=== PATIENT | male | born 1965 | race Asian ===

== ENCOUNTER 2023-07-21 19:55 | Inpatient (IN) | payer OTHER ==
[~2023-07-21] VITALS: Ht 160 cm; Wt 67.1 kg
[2023-07-21 20:36] LABS: BASO # 0.1 10^3/uL (0.0-0.2); BASO % 0.4 % (0.0-1.0); EOS # 0.1 10^3/uL (0.0-0.5); EOS % 0.3 % (0.0-3.0); HEMATOCRIT 42.2 % (42.0-52.0); HEMOGLOBIN 13.5 g/dl (13.5-17.5); LYMPH # 1.6 10^3/uL (1.5-5.0); MEAN CORPUSCULAR HEMOGLOBIN 27.6 pg (27.0-33.0); MEAN CORPUSCULAR VOLUME 86.3 fl (80.0-96.0); MONO # 1.1 10^3/uL (0.0-0.8); MONO % 6.3 % (2.0-8.0); NEUTROPHILS % 83.6 % (36.0-66.0); PLATELET COUNT, AUTOMATED 325 10^3/uL (150-450); RED BLOOD COUNT 4.89 10^6/uL (4.30-6.10)
[2023-07-21] MEDS: ONDANSETRON 4MG 2ML VIAL IV ONE (20:39)
[2023-07-21] MEDS: MORPHINE 4 MG/ML 1ML VIAL IV ONE (20:39)
[2023-07-21 21:26] LABS: LIPASE 27 U/L (12-53)
[2023-07-21 21:28] LABS: ALBUMIN 3.7 G/DL (3.2-5.2); ALKALINE PHOSPHATASE 79 U/L (46-116); ALT/SGPT 36 U/L (7.0-40); AST/SGOT 29 U/L (<34); BILIRUBIN,DIRECT 0.2 MG/DL (<0.4); BILIRUBIN,TOTAL 0.8 MG/DL (0.3-1.2); BLOOD UREA NITROGEN 14 MG/DL (9-23); CALCIUM LEVEL 9.5 MG/DL (8.5-10.1); CARBON DIOXIDE LEVEL 25 MMOL/L (20-31); CHLORIDE LEVEL 104 MMOL/L (98-107); CREATININE FOR GFR 0.98 MG/DL (0.70-1.30); GLOMERULAR FILTRATION RATE > 60.0 (>56); GLUCOSE, FASTING 105 MG/DL (60-100); POTASSIUM SERUM 4.3 MMOL/L (3.5-5.1); SODIUM LEVEL 139 MMOL/L (136-145); TOTAL PROTEIN 7.6 G/DL (5.7-8.2)
[2023-07-21] MEDS ORDERED: ISOVUE-370 76% 100ML VIAL As Ordered ONE (21:31)
[2023-07-21] MEDS: cefTRIAXone SOD 1 GM in D5W MINI-BAG PLUS 50 ML IV ONE (21:58)
[2023-07-21] MEDS: KETOROLAC 30 MG/ML 1ML VIAL IV ONE (21:59)
[2023-07-21] MEDS: METOCLOPRAMIDE INJ 10MG/2ML VIAL IV ONE (21:59)
[2023-07-21] MEDS: NS 1,000 ML IV ONE ×2 (21:59→23:40)
[2023-07-22] MEDS ORDERED: BIOT2500 PO (01:23)
[2023-07-22] MEDS ORDERED: ESSETAB4 PO (01:23)
[2023-07-22] MEDS ORDERED: VITA500C24 PO (01:23)
[2023-07-22] MEDS ORDERED: COLL1CAP PO (01:26)
[2023-07-22] MEDS ORDERED: HOME MED LIST COMPLETE! XX SCH (01:30)
[2023-07-22] MEDS ORDERED: HYDROMORPHONE HCL 0.5 MG/ 0.5 ML SYRINGE IV PRN (02:40)
[2023-07-22 04:14] VITALS: BP 102/55; TEMP 97.9; O2SAT 93
[2023-07-22] MEDS: NS 1,000 ML IV SCH (04:30)
[2023-07-22 06:12] VITALS: BP 108/58; TEMP 97.9; O2SAT 93
[2023-07-22 08:15] LABS: HEMATOCRIT 34.3 % (42.0-52.0); HEMOGLOBIN 10.7 g/dl (13.5-17.5); MEAN CORPUSCULAR HGB CONC 31.2 g/dl (32.0-36.5); MEAN CORPUSCULAR VOLUME 86.4 fl (80.0-96.0); PLATELET COUNT, AUTOMATED 263 10^3/uL (150-450); RED BLOOD COUNT 3.97 10^6/uL (4.30-6.10); WHITE BLOOD COUNT 8.9 10^3/uL (4.0-10.0)
[2023-07-22 08:32] LABS: BLOOD UREA NITROGEN 15 MG/DL (9-23); CALCIUM LEVEL 8.1 MG/DL (8.5-10.1); CARBON DIOXIDE LEVEL 26 MMOL/L (20-31); CHLORIDE LEVEL 109 MMOL/L (98-107); CREATININE FOR GFR 0.88 MG/DL (0.70-1.30); GLOMERULAR FILTRATION RATE > 60.0 (>56); GLUCOSE, FASTING 90 MG/DL (60-100); POTASSIUM SERUM 4.1 MMOL/L (3.5-5.1); SODIUM LEVEL 142 MMOL/L (136-145)
[2023-07-22] MEDS: KETOROLAC 30 MG/ML 1ML VIAL IV PRN (10:33)
[2023-07-22] MEDS ORDERED: IBUP-1022 PO (11:26)
[2023-07-22] MEDS ORDERED: PERC5TAB12 PO (11:26)
[2023-07-22] MEDS ORDERED: FLOM0.4C39 PO (11:26)
[2023-07-22 11:44] LABS: URIC ACID 5.5 MG/DL (3.7-9.2)
[2023-07-22] MEDS: INFLUENZA QUADRIVALENT PF VACCINE 0.5ML SYRINGE IM.IMMUN ONE (13:10)
[2023-07-22] MEDS ORDERED: cefTRIAXone SOD 1 GM in D5W MINI-BAG PLUS 50 ML IV SCH (22:00)
== END 2023-07-22 14:20 | disposition home or self-care (01) | DRG 465 ==
LOC: M ED 19:55 → M ED INP 07-22 02:39 → ENRESERV 07-22 03:18 → M MSPAV 07-22 04:13
PROVIDERS: ADMIT Internal Medicine; ATTEND Internal Medicine Nephrology
DX: N13.2 Hydronephrosis with renal and ureteral calculous obstruction (principal); I95.9 Hypotension, unspecified; Z79.899 Other long term (current) drug therapy

== ENCOUNTER → 2023-08-03 | Outpatient (CLI) | payer OTHER ==
[~2023-08-03] MED LIST: BIOT2500 PO; COLL1CAP PO; ESSETAB4 PO; FLOM0.4C39 PO; IBUP-1022 PO; PERC5TAB12 PO; VITA500C24 PO
[2023-08-03 19:13] LABS: APPEARANCE, URINE CLEAR (CLEAR); BACTERIA, URINE AUTO NEGATIVE (NEGATIVE); BILIRUBIN, URINE AUTO NEGATIVE (NEGATIVE); BLOOD, URINE BLOOD 1+ (NEGATIVE); COLOR, URINE STRAW (YELLOW); GLUCOSE, URINE (UA) AUTO NEGATIVE (NEGATIVE); KETONE, URINE AUTO NEGATIVE (NEGATIVE); LEUKOCYTE ESTERASE, URINE AUTO NEGATIVE (NEGATIVE); NITRITE, URINE AUTO NEGATIVE (NEGATIVE); PROTEIN, URINE AUTO NEGATIVE (NEGATIVE); RBC, URINE AUTO 1 /HPF (0-3); SPECIFIC GRAVITY URINE AUTO 1.003 (1.002-1.035); SQUAMOUS EPITHELIAL CELL UR AU 0 /HPF (0-6); UROBILINOGEN, URINE AUTO 0.2 mg/dL (0.0-2.0); WBC, URINE AUTO 4 /HPF (0-3)
== END ==
LOC: M RAD 18:23
PROVIDERS: ATTEND Nurse Practitioner Family
DX: Z01.818 Encounter for other preprocedural examination (principal); R00.1 Bradycardia, unspecified

== ENCOUNTER 2023-08-13 11:08 | Day surgery (SDC) | payer OTHER ==
[~2023-08-13] VITALS: Ht 160 cm; Wt 64.4 kg
[~2023-08-13 11:08] MED LIST changes: +dexmedeTOMIDine (4MCG/ML)200MCG/50ML BTL (PRECEDEX) As Ordered ONE; +propofoL 200 MG/20 ML VIAL As Ordered ONE
[2023-08-13] MEDS ORDERED: LR 1,000 ML IV SCH ×2 (11:25→13:35)
[2023-08-13] MEDS ORDERED: fentaNYL 100 MCG/2 ML INJECTION As Ordered ONE (11:41)
[2023-08-13] MEDS ORDERED: MIDAZOLAM INJ 2MG/2ML VIAL As Ordered ONE (11:41)
[2023-08-13] MEDS ORDERED: SUGAMMADEX SODIUM 500 MG/5 ML VIAL (BRIDION) As Ordered ONE (11:42)
[2023-08-13] MEDS ORDERED: ROCURONIUM BROMIDE 50MG/5ML VIAL As Ordered ONE (11:42)
[2023-08-13] MEDS ORDERED: LIDOCAINE 2% 100MG/5ML SDV (FOR ANES.) As Ordered ONE (11:42)
[2023-08-13] MEDS ORDERED: ONDANSETRON 4MG 2ML VIAL As Ordered ONE (11:43)
[2023-08-13] MEDS ORDERED: METOCLOPRAMIDE INJ 10MG/2ML VIAL As Ordered ONE (11:44)
[2023-08-13] MEDS ORDERED: LACRILUBE (AKWA TEARS) OPHTH OINT 3.5GM As Ordered ONE (12:18)
[2023-08-13] MEDS: ceFAZolin SOD 2 GM in IV 1 EA IV ONE (12:52)
[2023-08-13] MEDS ORDERED: ACETAMINOPHEN 1000MG 100ML IV BAG As Ordered ONE (12:53)
[2023-08-13] MEDS: ISOVUE-300 61% 100ML VIAL As Ordered ONE (13:24)
[2023-08-13] MEDS ORDERED: PYRI1TAB5 PO (13:34)
[2023-08-13] MEDS ORDERED: MACR100C43 PO (13:34)
[2023-08-13] MEDS ORDERED: fentaNYL 100 MCG/2 ML INJECTION IV PRN (13:35)
[2023-08-13] MEDS ORDERED: ONDANSETRON 4MG 2ML VIAL IV PRN (13:35)
[2023-08-13] MEDS ORDERED: oxyCODONE 5MG TAB PO PRN (13:35)
[2023-08-13] MEDS ORDERED: HYDROMORPHONE HCL 0.5 MG/ 0.5 ML SYRINGE IV PRN (13:35)
[2023-08-13 14:50] VITALS: BP 112/68; TEMP 97.7; O2SAT 98
== END 2023-08-13 15:08 | disposition home or self-care (01) ==
LOC: M SDC 11:08
PROVIDERS: ATTEND Urology
DX: N20.1 Calculus of ureter (principal); E78.5 Hyperlipidemia, unspecified; Z86.73 Personal history of transient ischemic attack (TIA), and cerebral infarction without residual deficits; Z79.899 Other long term (current) drug therapy
CPT/HCPCS: 52332; 76000; C2617; J0131; J0690; J1100; J2250; J2405; J2765; J3010; Q9967

== ENCOUNTER → 2025-03-24 | Outpatient (REF) | payer OTHER ==
[~2025-03-24] MED LIST changes: -FLOM0.4C39 PO; -IBUP-1022 PO; +IBUP600T42 PO; +MACR100C43 PO; +PYRI1TAB5 PO; +TAMS-18 PO; -dexmedeTOMIDine (4MCG/ML)200MCG/50ML BTL (PRECEDEX) As Ordered ONE; -propofoL 200 MG/20 ML VIAL As Ordered ONE
[2025-03-24 17:33] LABS: PLATELET COUNT, AUTOMATED 320 10^3/uL (150-450)
[2025-03-24 17:57] LABS: ALT/SGPT 27 U/L (7.0-40); AST/SGOT 25 U/L (<34); CALCIUM LEVEL 8.9 MG/DL (8.3-10.6); CARBON DIOXIDE LEVEL 26 MMOL/L (20-31); CHLORIDE LEVEL 104 MMOL/L (98-107); CHOLESTEROL LEVEL 285 MG/DL (<200); CHOLESTEROL RISK RATIO 5.96 (<5); CREATININE FOR GFR 0.93 MG/DL (0.70-1.30); GLOMERULAR FILTRATION RATE > 90.0 (>49); LDL CHOLESTEROL 164.0 MG/DL (<100); NON-HDL-C 237.2 MG/DL; POTASSIUM SERUM 4.1 MMOL/L (3.5-5.1); PSA SCREENING 1.29 NG/ML (< 4.00); SODIUM LEVEL 141 MMOL/L (136-145); TRIGLYCERIDES LEVEL 366 MG/DL (<150)
[2025-03-24 18:01] LABS: FREE T4 1.21 NG/DL (0.89-1.76)
[2025-03-24 18:50] LABS: ESTIMATED AVERAGE GLUCOSE 91.0 MG/DL (60-110)
== END ==
LOC: M LAB REF 16:42
PROVIDERS: ATTEND Student in an Organized Health Care Education/Training Program
DX: Z12.5 Encounter for screening for malignant neoplasm of prostate (principal); Z87.442 Personal history of urinary calculi; R00.2 Palpitations; Z82.3 Family history of stroke; Z68.26 Body mass index [BMI] 26.0-26.9, adult; M89.8X9 Other specified disorders of bone, unspecified site